=== PATIENT | male | born 1995 | race Caucasian/White ===

== ENCOUNTER 2016-08-24 18:06 | Emergency (ER) | payer OTHER ==
[2016-08-24] MEDS ORDERED: CELEXA20 M2 PO (18:25)
[2016-08-24] MEDS ORDERED: AMBIEN5 M1 PO (18:26)
[2016-08-24] MEDS ORDERED: NORCO 5-325 TA1 EACH PO (18:58)
== END 2016-08-24 19:58 ==
LOC: EDMED 18:06
DX: L55.1 Sunburn of second degree (principal); F17.210 Nicotine dependence, cigarettes, uncomplicated; Z23 Encounter for immunization